=== PATIENT | female | born 1940 | race Caucasian/White ===

== ENCOUNTER 2019-05-22 16:09 | IRF | payer MEDICARE, SELFPAY ==
[2019-05-22 16:15] VITALS: BP 164/50; PULSE 96; RESP 18; TEMP 36.6; O2SAT 100; BMI 28.7
--- NOTE | 2019-05-22 16:37 | ADMGEN ---
This patient, Shital Chew, was admitted to [facility] Room 219-01. Patient/family oriented to hospital policies and general routines including ID bracelet, bed and alarms, visiting hours, pain management, procedures, bathroom and other care routines, personal items, smoking policy, room service/diet, and visiting hours. Valuables list has been completed. Information on how to activate the Rapid Response Team has been discussed. Patient/Family are encouraged to report perceived risks to care and to ask questions if they do not understand what they are told or what they should do.
[2019-05-22 17:27] LABS: Glucose Point of Care 111 (65-105)
[2019-05-22 21:14] LABS: Glucose Point of Care 156 (65-105)
[2019-05-22 21:33] VITALS: BP 146/40; PULSE 81; RESP 16; TEMP 36.6; O2SAT 96
[2019-05-22] MEDS: GABAPENTIN 300 MG CAPSULE 600 MG PO (22:02)
[2019-05-22] MEDS: ATORVASTATIN 40 MG TABLET PO (22:03)
[2019-05-23 05:00] LABS: Basophils Percent Auto 0.5 % (0.2-1.2); Eosinophils Absolute Auto 0.3 K/mm3 (0-0.3); Eosinophils Percent Auto 4.4 % (0-4.4); Hematocrit 26.8 % (37.0-47.0); Hemoglobin 8.6 g/dL (12.0-15.0); Immature Granulocyte Absolute 0.02 K/mm3 (0.00-0.031); Immature Granulocyte Percent A 0.3 % (0-0.5); Lymphocytes Absolute Auto 1.35 K/mm3 (0.9-3.2); Lymphocytes Percent Auto 21.3 % (18.3-44.2); Mean Corpuscular HGB Conc 32.1 g/dl (32-36); Mean Corpuscular Hemoglobin 30.2 pg (26-34); Mean Platelet Volume 11.5 fl (7.4-10.4); Monocytes Absolute Auto 0.7 K/mm3 (0.1-0.6); Monocytes Percent Auto 10.4 % (2.6-8.5); Neutrophils Percent Auto 63.1 % (45.5-73.1); Platelet Count Result 233 k/mm3 (150-375); Red Blood Count 2.85 M/mm3 (4.2-5.4); Red Cell Distribution Width 12.2 % (11.5-14.5); White Blood Count 6.3 K/mm3 (4.5-10.0)
[2019-05-23 05:24] LABS: Blood Urea Nitrogen 20 mg/dL (7-17); Carbon Dioxide 29 mmol/L (22-30); Chloride 106 mmol/L (98-107); Estimated Glomerular Filt Rate > 60; Glucose 111 mg/dL (65-105); Potassium 4.1 mmol/L (3.4-5.0); Sodium 138 mmol/L (137-145)
[2019-05-23 06:00] VITALS: BP 157/40; PULSE 70; RESP 20; TEMP 36.6; O2SAT 96
[2019-05-23] MEDS: LEVOTHYROXINE SODIUM 112 MCG, LEVOTHYROXINE SODIUM 25 MCG 137 MCG PO (06:09)
[2019-05-23 06:51] LABS: Glucose Point of Care 114 (65-105)
[2019-05-23] MEDS: ASCORBIC ACID 250 MG TABLET PO (08:04)
[2019-05-23] MEDS: ENOXAPARIN 40 MG/0.4 ML SYRINGE SUB-Q (08:04)
[2019-05-23] MEDS: FERROUS SULFATE 324 MG TABLET PO (08:04)
[2019-05-23] MEDS: AMLODIPINE BESYLATE 5 MG TABLET 10 MG PO (08:04)
[2019-05-23] MEDS: PANTOPRAZOLE 40 MG TABLET PO (08:05)
[2019-05-23] MEDS: GABAPENTIN 300 MG CAPSULE 600 MG PO ×3 (08:05→17:28)
[2019-05-23] MEDS: MULTIVITAMINS THERAPEUTIC TAB (*BKC) 1 TABLET PO (08:05)
[2019-05-23] MEDS: LIDOCAINE 5% PATCH 1 PATCH TOPICAL (08:05)
[2019-05-23 12:10] LABS: Glucose Point of Care 94 (65-105)
--- NOTE | 2019-05-23 12:34 | WPDREHABHP ---
H&P: HPI History of Present Illness Chief complaint: Right Hip Fx Narrative: Shital Chew is a 78 year old femaleHISTORY OF PRESENT ILLNESS: The patient's primary rehab impairment category is orthopedic/lower extremity fracture The etiologic diagnosis is right intertrochanteric fracture I saw this patient [id number] on May 23, 2019 at 11:00 a.m. The patient is a 78-year-old right-handed woman with a past medical history of hypertension, hyperlipidemia and diabetes mellitus type 2 who presented to [facility] on May 18, 2019 following a fall from standing. The patient was shopping then and other customer bumped into her knocking her to the ground. She immediately raise reported severe right hip pain. Imaging demonstrated a right intertrochanteric fracture. Orthopedic surgery was consulted and the patient underwent and intramedullary nailing on May 18, 2019 by . she is weight-bearing as tolerated to the right lower extremity. Postoperative complications have included acute kidney injury on suspected chronic kidney disease, acute pain, acute blood-loss anemia, and hypertension. Her current hemoglobin is 8.9 and stable her pain is controlled on oral pain medication and she is normotensive. She will be discharged to rehab on Lovenox and the anticoagulation plan the times discharge for 35 days Therapy was initiated at the acute care facility and the patient transferred to us from [facility] on May 22, 2019 on FALLS OR SURGERIES: The patient has had major surgeries in the 100 days prior to admission. They had falls in the past year. They had falls with injury in the past year. PAST MEDICAL HISTORY: diabetes mellitus type 2 with peripheral neuropathy, hypertension, hyperlipidemia PAST SURGICAL HISTORY: mastectomy SOCIAL HISTORY: never smoker no alcohol or drug abuse. FAMILY HISTORY: Mother with breast cancer PRIOR LEVEL OF FUNCTION: Eating was INDEPENDENT Oral Care was INDEPENDENT Toileting Hygiene was INDEPENDENT Shower/Bathing was INDEPENDENT Upper Body Dressing was INDEPENDENT Lower Body Dressing was INDEPENDENT Donning/[place] Footwear was INDEPENDENT Rolling Left and Right was INDEPENDENT Sit to Lying was INDEPENDENT Lying to Sitting was INDEPENDENT Sit to Stand was INDEPENDENT Bed to Chair Transfers was INDEPENDENT Toilet Transfers was INDEPENDENT Walking was INDEPENDENT 999 feet with NO DEVICE Wheelchair Mobility was NOT APPLICABLE PRIOR TO ADMISSION Stairs were for history is independent CURRENT LEVEL OF FUNCTION: Eating was [SET UP ONLY] independent Oral Care was supervision Toileting Hygiene was partial real estate executive assistant Shower/Bathing was substantial assistance Upper Body Dressing was partial assistance Lower Body Dressing was substantial cyst Donning/[place] Footwear was substantial assistance Rolling Left and Right was partial system Sit to Lying was partial assistance Lying to Sitting was partial assistance Sit to Stand was partial cyst Bed to Chair Transfers were partial cyst Toilet Transfers were partial assistance Walking was partial assistance with rolling walker 10 feet Wheelchair Mobility was not test Stairs were not tested GOALS: Our therapists will evaluate the patient and establish the goals. However, upon pre-admission screening, the expected goals were to be INDEPENDENT with self-care, INDEPENDENT with transfers, and INDEPENDENT with functional mobility so that the patient can return home. ESTIMATED LENGTH OF STAY: 10-14 days POTENTIAL BARRIERS TO DISCHARGE: Family needs training. ACTIVE CO-MORBIDITIES PRESENT ON ADMISSION: Active co-morbidities include what I have mentioned in the initial My history physical examination. The above co-morbidities impact the patient's function and/or functional outcome by the fact that the patient needs to be monitored because of a
[2019-05-23 13:42] VITALS: BMI 28.7
[2019-05-23 14:00] VITALS: BP 146/47; PULSE 90; RESP 16; TEMP 36.6; O2SAT 99
--- NOTE | 2019-05-23 14:22 | PCCCNOTE ---
On 05/23/19, the student, [ Bobby Lan ], provided care and completed [facility] documentation on this patient. I have reviewed the student's documentation and agree with the findings.
[2019-05-23 17:11] LABS: Glucose Point of Care 112 (65-105)
[2019-05-23] MEDS: ATORVASTATIN 40 MG TABLET PO (20:24)
[2019-05-23 21:38] VITALS: BP 140/53; PULSE 82; RESP 20; TEMP 36.6; O2SAT 98
[2019-05-24] MEDS: LEVOTHYROXINE SODIUM 112 MCG, LEVOTHYROXINE SODIUM 25 MCG 137 MCG PO (05:44)
[2019-05-24 06:00] VITALS: BP 149/56; PULSE 77; RESP 18; TEMP 36.6; O2SAT 97
[2019-05-24 06:11] LABS: Glucose Point of Care 99 (65-105)
[2019-05-24] MEDS: ENOXAPARIN 40 MG/0.4 ML SYRINGE SUB-Q (08:59)
[2019-05-24] MEDS: LIDOCAINE 5% PATCH 1 PATCH TOPICAL (08:59)
[2019-05-24] MEDS: FERROUS SULFATE 324 MG TABLET PO (09:00)
[2019-05-24] MEDS: AMLODIPINE BESYLATE 5 MG TABLET 10 MG PO (09:00)
[2019-05-24] MEDS: ASCORBIC ACID 250 MG TABLET PO (09:00)
[2019-05-24] MEDS: MULTIVITAMINS THERAPEUTIC TAB (*BKC) 1 TABLET PO (09:00)
[2019-05-24] MEDS: PANTOPRAZOLE 40 MG TABLET PO (09:00)
[2019-05-24] MEDS: GABAPENTIN 300 MG CAPSULE 600 MG PO ×3 (09:00→16:57)
[2019-05-24 12:07] LABS: Glucose Point of Care 92 (65-105)
--- NOTE | 2019-05-24 12:50 | WPDNEURORHBP ---
Subjective Date/time seen: 05/24/19 12:50 Interval history: patient is complaining of some soreness and itching around the area of incision off if surgery this examiner looked at and looks like little abrasion but not infection and will put some kind of cream or lotion after checking with the wound care nurse otherwise she denies any headache chest pain shortness of breath her pain control is fair so we will manage it better she is improving overall Review of Systems Review of Systems: All systems reviewed & are unremarkable except as noted in HPI and below Functional Status Ambulation Ability Ability to Ambulate 10 Feet: Contact Guard Ambulation Assistive Devices: Walker, Wheeled Transfers Ability Ability to Transfer In/Out of Chair: Minimum Assistance X 1 Exam Const: General: comfortable and no acute distress HENMT: Other: normal exam Eyes: General: appearance normal, both eyes and all related structures Neck: Neck: supple and no JVD Resp: Effort & Inspection: normal respiratory effort Auscultation: clear to auscultation bilaterally Cardio: Rate: regular rate Rhythm: regular rhythm GI: GI Palp: Yes Soft to palpation Percussion: Yes normal to percussion Auscultation: normal bowel sounds Skin: General skin exam: normal color and no rashes or lesions noted Neuro: Other: improving strength particularly the lower extremities and also the upper extremities intact the neuro examination otherwise no lateralizing focal motor deficit Extrem: General: normal to inspection Objective Data Vital Signs Vital Signs: Vital Signs - 24 hr 05/23/19 14:00 05/23/19 21:38 05/24/19 06:00 Temperature 36.6 C 36.6 C 36.6 C Pulse Rate 90 82 77 Respiratory Rate 16 20 18 Blood Pressure 146/47 H 140/53 L 149/56 H Pulse Oximetry 99 98 97 Intake/Output Intake/Output: Intake & Output 05/21/19 05/22/19 05/23/19 05/24/19 23:59 23:59 23:59 23:59 Intake Total 720 360 Balance 720 360 Meds/Results Medications: Active Medications Generic Name Dose Route Start Last Admin Trade Name Freq PRN Reason Stop Dose Admin Amlodipine Besylate 10 mg 05/23/19 09:00 05/24/19 09:00 Norvasc PO 10 mg DAILY HEATHER Administration Ascorbic Acid 250 mg 05/23/19 09:00 05/24/19 09:00 Vitamin C PO 250 mg DAILY HEATHER Administration Atorvastatin Calcium 40 mg 05/22/19 21:00 05/23/19 20:24 Lipitor PO 40 mg HS HEATHER Administration Enoxaparin Sodium 40 mg 05/23/19 09:00 05/24/19 08:59 Lovenox SUB-Q 06/26/19 09:01 40 mg DAILY HEATHER Administration Ferrous Sulfate 324 mg 05/23/19 09:00 05/24/19 09:00 Ferrous Sulfate PO 324 mg DAILY HEATHER Administration Gabapentin 600 mg 05/22/19 21:00 05/24/19 12:11 Neurontin PO 600 mg TID HEATHER Administration Levothyroxine Sodium 112 mcg/ 137 mcg 05/23/19 06:30 05/24/19 05:44 Levothyroxine Sodium 25 mcg PO 137 mcg DAILY@0630 HEATHER Administration Lidocaine 1 patch 05/23/19 09:00 05/24/19 08:59 Lidoderm TOPICAL 05/25/19 09:01 1 patch DAILY HEATHER Administration Multivitamins Therapeutic 1 tablet 05/23/19 09:00 05/24/19 09:00 Multivitamins Therapeutic(*Bkc PO 1 tablet DAILY HEATHER Administration Oxybutynin Chloride 5 mg 05/23/19 09:00 05/24/19 09:00 Ditropan Xl PO 5 mg DAILY HEATHER Administration Oxycodone HCl 5 mg 05/22/19 20:51 05/23/19 12:26 Roxicodone Ir Tablet PO 5 mg Q6H PRN Administration Pain (Scale Score 7-10) Pantoprazole Sodium 40 mg 05/23/19 09:00 05/24/19 09:00 Protonix PO 40 mg QAM HEATHER Administration Labs Labs: Laboratory Results - last 24 hr 05/23/19 05/24/19 05/24/19 17:04 05:47 12:05 POC Capillary Glucose 112 H 99 92 Progress Note: A&P Assessment and Plan (1) Hyperlipidemia: Code(s): E78.5 - Hyperlipidemia, unspecified Status: Acute (2) Hypertension: Code(s): I10 - Essential (primary) hypertension Status: Acute (3) Isabel
[2019-05-24 14:00] VITALS: BP 158/58; PULSE 90; RESP 18; TEMP 36.4; O2SAT 100
--- NOTE | 2019-05-24 14:41 | RPD ---
INDIVIDUALIZED PLAN OF CARE FOR Shital Chew Brief Synthesis of Pre-Admission Screen, Post-Admission Evaluation and Therapy Evaluations: The patient presents to rehab with right intertrochanteric fracture. Comorbidities include status post intramedullary nailing right hip, hypertension, hyperlipidemia, acute pain, acute kidney injury, diabetes mellitus. The patient requires physician services for medical oversight, management of postop complications in setting of present comorbidities, and pain management. The patient requires nursing services for DVT prophylactics, infection protection, medication management and education, pressure relief, and wound care. Prior to admission, the patient was completely independent in all regards, with no device. Deficits include:ADLs, Balance, Endurance, Mobility, Pain Management, ROM, Safety, Strength, Transfers Career Consultant/Case Management for: Discharge Planning and Patient/Family Counseling Physical Therapy: 5 days per week for 90 minutes. Treatments may include: Therapeutic Exercise, Gait Training, Neuromuscular Re-education, Transfer Training, Community Reintegration, Bed Mobility, Patient/Family Education, Wheelchair Mobility Group Therapy/Concurrent Therapy Rationales: -Improve attention span during functional activities in a distracted environment. -Enhance problem solving and/or adequate judgment skills during functional activities in a distracted environment. -Promote increased safety awareness in a distracted environment to reduce fall risk with functional tasks, transfers, and ambulation to allow a more safe, self-sufficient return to the home environment. -Improve dynamic balance skills to promote safety and independence with functional activities in a distracted environment for maximum gain. Occupational Therapy: 5 days per week for 90 minutes. Treatments may include: Therapeutic Exercise, Therapeutic Activity, Cognitive Training, Self-Care Transfer Training, Community Reintegration, Home Management, Patient/Family Education, Wheelchair Mobility Training, Energy Conservation Training Group Therapy/Concurrent Therapy Rationales: -Allow therapist to observe and teach generalization and carry-over of skills learned in individual therapy. -Enhance problem solving and sequencing skills during therapeutic activities in a distracted environment. -Promote increased safety awareness in a realistic setting to reduce fall risk with functional tasks due to visual and verbal distractions. -Increase functional level with ADLs, ADL transfers and use of adaptive equipment through therapeutic activities with others while promoting safety to allow a more safe, self-sufficient return home. Medical Prognosis: Good Anticipated Length of Stay: 10 days Rehab Goals: Oral Hygiene Goal: 06-Independent Toileting Hygiene Goal: 06-Independent Shower/Bathe Self Goal: 06-Independent Upper Body Dressing Goal: 06-Independent Lower Body Dressing Goal: 06-Independent Putting On/Taking Off Footwear Goal: 06-Independent Rolling Left and Right Goal: 06-Independent Sit to Lying Goal: 06-Independent Lying to Sitting on Side of Bed Goal: 06-Independent Sit to Stand Goal: 06-Independent Chair/[id number] Transfer Goal: 06-Independent Toilet Transfer Goal: 06-Independent Car Transfer Goal: 06-Independent Walk 10' Goal: 06-Independent Walk 50' with Two Turns Goal: 06-Independent Walk 150' Goal: 06-Independent Walk 10' on Uneven Surface Goal: 05-Setup or Clean Up Assistance 1 Step (Curb) Goal: 05-Setup or Clean Up Assistance 4 Steps Goal: 05-Setup or Clean Up Assistance 12 Steps Goal Score: 01-Dependent Picking Up Object Goal: 06-Independent Wheel 50' with Two Turns Score: 06-Independent Wheel 150' Goal: 06-Independent Anticipated discharge destination: Home
[2019-05-24] MEDS: ATORVASTATIN 40 MG TABLET PO (19:59)
[2019-05-24 22:00] VITALS: BP 144/46; PULSE 67; RESP 18; TEMP 36.5; O2SAT 98
[2019-05-25] MEDS: LEVOTHYROXINE SODIUM 112 MCG, LEVOTHYROXINE SODIUM 25 MCG 137 MCG PO (05:39)
[2019-05-25 05:54] VITALS: BP 136/52; PULSE 62; RESP 18; TEMP 36.3; O2SAT 99
[2019-05-25 06:14] LABS: Glucose Point of Care 92 (65-105)
[2019-05-25] MEDS: LIDOCAINE 5% PATCH 1 PATCH TOPICAL (09:26)
[2019-05-25] MEDS: ENOXAPARIN 40 MG/0.4 ML SYRINGE SUB-Q (09:26)
[2019-05-25] MEDS: MULTIVITAMINS THERAPEUTIC TAB (*BKC) 1 TABLET PO (09:27)
[2019-05-25] MEDS: FERROUS SULFATE 324 MG TABLET PO (09:27)
[2019-05-25] MEDS: PANTOPRAZOLE 40 MG TABLET PO (09:27)
[2019-05-25] MEDS: ASCORBIC ACID 250 MG TABLET PO (09:27)
[2019-05-25] MEDS: GABAPENTIN 300 MG CAPSULE 600 MG PO ×3 (09:27→17:07)
[2019-05-25] MEDS: AMLODIPINE BESYLATE 5 MG TABLET 10 MG PO (09:27)
--- NOTE | 2019-05-25 11:45 | WPDNEURORHBP ---
Subjective Date/time seen: 05/25/19 11:45 Interval history: patient complains of modest amount of the pain at the surgical site of the right hip area, the so redness around the dressing is much less and the nurse has been in touch with the wound care nurse and she is going to put skin prep to keep her more comfortable overall patient is doing well without any headaches chest pain shortness of breath Review of Systems Review of Systems: All systems reviewed & are unremarkable except as noted in HPI and below Functional Status Ambulation Ability Ability to Ambulate 10 Feet: Contact Guard Ability to Ambulate 50 Feet With 2 Turns: Contact Guard Ambulation Assistive Devices: Walker, Wheeled Transfers Ability Ability to Transfer In/Out of Chair: Minimum Assistance X 1 Exam Const: General: comfortable and no acute distress HENMT: General nose exam: Normal nares present Mouth: Yes moist mucous membranes Eyes: General: appearance normal, both eyes and all related structures Neck: Neck: supple and no JVD Resp: Effort & Inspection: normal respiratory effort Auscultation: clear to auscultation bilaterally Cardio: Rate: regular rate Rhythm: regular rhythm GI: GI Palp: Yes Soft to palpation Auscultation: normal bowel sounds Skin: General skin exam: normal color and no rashes or lesions noted Other: little abraded area around the site of the surgery for the right hip fracture which is going to be skin prepped once the nurse change the dressing today Neuro: Other: patient is doing remarkably well without any lateralizing focal motor deficit she is following the weight-bearing status quite well gait is improving strength is improving endurance is improved Extrem: General: normal to inspection Objective Data Vital Signs Vital Signs: Vital Signs - 24 hr 05/24/19 14:00 05/24/19 22:00 05/25/19 05:54 Temperature 36.4 C 36.5 C 36.3 C L Pulse Rate 90 67 62 Respiratory Rate 18 18 18 Blood Pressure 158/58 H 144/46 H 136/52 L Pulse Oximetry 100 98 99 Intake/Output Intake/Output: Intake & Output 05/22/19 05/23/19 05/24/19 05/25/19 23:59 23:59 23:59 23:59 Intake Total 720 840 240 Balance 720 840 240 Meds/Results Medications: Active Medications Generic Name Dose Route Start Last Admin Trade Name Freq PRN Reason Stop Dose Admin Amlodipine Besylate 10 mg 05/23/19 09:00 05/25/19 09:27 Norvasc PO 10 mg DAILY HEATHER Administration Ascorbic Acid 250 mg 05/23/19 09:00 05/25/19 09:27 Vitamin C PO 250 mg DAILY HEATHER Administration Atorvastatin Calcium 40 mg 05/22/19 21:00 05/24/19 19:59 Lipitor PO 40 mg HS HEATHER Administration Enoxaparin Sodium 40 mg 05/23/19 09:00 05/25/19 09:26 Lovenox SUB-Q 06/26/19 09:01 40 mg DAILY HEATHER Administration Ferrous Sulfate 324 mg 05/23/19 09:00 05/25/19 09:27 Ferrous Sulfate PO 324 mg DAILY HEATHER Administration Gabapentin 600 mg 05/22/19 21:00 05/25/19 09:27 Neurontin PO 600 mg TID [facility] Administration Levothyroxine Sodium 112 mcg/ 137 mcg 05/23/19 06:30 05/25/19 05:39 Levothyroxine Sodium 25 mcg PO 137 mcg DAILY@0630 HEATHER Administration Multivitamins Therapeutic 1 tablet 05/23/19 09:00 05/25/19 09:27 Multivitamins Therapeutic(*Bkc PO 1 tablet DAILY HEATHER Administration Oxybutynin Chloride 5 mg 05/23/19 09:00 05/25/19 09:26 Ditropan Xl PO 5 mg DAILY HEATHER Administration Oxycodone HCl 5 mg 05/22/19 20:51 05/25/19 05:42 Roxicodone Ir Tablet PO 5 mg Q6H PRN Administration Pain (Scale Score 7-10) Pantoprazole Sodium 40 mg 05/23/19 09:00 05/25/19 09:27 Protonix PO 40 mg QAM HEATHER Administration Labs Labs: Laboratory Results - last 24 hr 05/24/19 05/25/19 12:05 05:38 POC Capillary Glucose 92 92 Progress Note: A&P Assessment and Plan (1) Hyperlipidemia: Code(s): E78.5 - Hyperlipidemia, unspecified Status: Acute (2) Hypertension:
--- NOTE | 2019-05-25 12:42 | PCDIET ---
Nutrition Follow-Up Complete: Nutrition Diagnosis: No nutrition diagnosis at this time. Nutrition Goals: Intakes >75%, stable weight. Goals met. Intakes average 80% of meals since admission on diabetic, carbohydrate controlled diet which is appropriate. Patient reports appetite only fair but is eating as well as possible. Last recorded weight is 64.5 kg. Recommend obtaining new weight. Bowel Motility: Last documented bowel movement on 05/22/19. Labs Reviewed: Glu (92) Meds Noted: Vitamin C, Ferrous Sulfate, Multivitamin, Protonix Additional Notes: Right hip surgical incision site; no pressure sores documented. Nutrition Monitoring and Evaluation: Follow up in 7 days.
--- NOTE | 2019-05-25 13:05 | PCPTNOTE ---
Shital Chew was evaluated for a wheeled walker on 05/25/2019 by this physical therapist patient support assistant The wheeled walker will resolve patient's mobility limitations and will be used for ADL's within the home. The patient can safely use the wheeled walker. ?The wheeled walker will resolve the patient?s mobility deficits, including decrease strength of right lower extremity, balance and endurance.
[2019-05-25 14:00] VITALS: BP 151/51; PULSE 86; RESP 20; TEMP 36.4; O2SAT 100
[2019-05-25] MEDS: ATORVASTATIN 40 MG TABLET PO (19:58)
[2019-05-25 22:00] VITALS: BP 168/56; PULSE 62; RESP 18; TEMP 36.3; O2SAT 92
[2019-05-26 05:52] VITALS: BP 171/46; PULSE 80; RESP 18; TEMP 36.7; O2SAT 98
[2019-05-26] MEDS: LEVOTHYROXINE SODIUM 112 MCG, LEVOTHYROXINE SODIUM 25 MCG 137 MCG PO (06:21)
[2019-05-26 06:32] LABS: Glucose Point of Care 82 (65-105)
[2019-05-26] MEDS: AMLODIPINE BESYLATE 5 MG TABLET 10 MG PO (09:39)
[2019-05-26] MEDS: MULTIVITAMINS THERAPEUTIC TAB (*BKC) 1 TABLET PO (09:40)
[2019-05-26] MEDS: ENOXAPARIN 40 MG/0.4 ML SYRINGE SUB-Q (09:40)
[2019-05-26] MEDS: ASCORBIC ACID 250 MG TABLET PO (09:40)
[2019-05-26] MEDS: PANTOPRAZOLE 40 MG TABLET PO (09:40)
[2019-05-26] MEDS: GABAPENTIN 300 MG CAPSULE 600 MG PO ×3 (09:40→17:28)
[2019-05-26] MEDS: FERROUS SULFATE 324 MG TABLET PO (09:40)
--- NOTE | 2019-05-26 11:52 | WPDNEURORHBP ---
Subjective Date/time seen: 05/26/19 11:52 Interval history: patient is doing well and could have a dressing change today apart from the soreness at the hip fracture site she does not have any specific complaints she is little tired after the physical therapy but no chest pain no shortness of breath no headache nausea vomiting fevers chills or sore throat Review of Systems Review of Systems: All systems reviewed & are unremarkable except as noted in HPI and below Functional Status Ambulation Ability Ability to Ambulate 10 Feet: Contact Guard Ability to Ambulate 50 Feet With 2 Turns: Contact Guard Ambulation Assistive Devices: Walker, Wheeled Transfers Ability Ability to Transfer In/Out of Chair: Standby Assistance Exam Const: General: comfortable and no acute distress HENMT: General nose exam: Normal nares present Mouth: Yes moist mucous membranes Eyes: General: appearance normal, both eyes and all related structures Neck: Neck: supple and no JVD Resp: Effort & Inspection: normal respiratory effort Auscultation: clear to auscultation bilaterally Cardio: Rate: regular rate Rhythm: regular rhythm GI: GI Palp: Yes Soft to palpation Auscultation: normal bowel sounds Skin: General skin exam: normal color and no rashes or lesions noted Neuro: Other: improving strength and endurance engage in therapy motivated no lateralizing focal motor deficit the weakness is related to her hip surgery rather than neurological in nature Extrem: General: normal to inspection Objective Data Vital Signs Vital Signs: Vital Signs - 24 hr 05/25/19 14:00 05/25/19 22:00 05/26/19 05:52 Temperature 36.4 C 36.3 C L 36.7 C Pulse Rate 86 62 80 Respiratory Rate 20 18 18 Blood Pressure 151/51 H 168/56 H 171/46 H Pulse Oximetry 100 92 98 Intake/Output Intake/Output: Intake & Output 05/23/19 05/24/19 05/25/19 05/26/19 23:59 23:59 23:59 23:59 Intake Total 720 840 600 240 Balance 720 840 600 240 Meds/Results Medications: Active Medications Generic Name Dose Route Start Last Admin Trade Name Freq PRN Reason Stop Dose Admin Amlodipine Besylate 10 mg 05/23/19 09:00 05/26/19 09:39 Norvasc PO 10 mg DAILY HEATHER Administration Ascorbic Acid 250 mg 05/23/19 09:00 05/26/19 09:40 Vitamin C PO 250 mg DAILY HEATHER Administration Atorvastatin Calcium 40 mg 05/22/19 21:00 05/25/19 19:58 Lipitor PO 40 mg HS HEATHER Administration Enoxaparin Sodium 40 mg 05/23/19 09:00 05/26/19 09:40 Lovenox SUB-Q 06/26/19 09:01 40 mg DAILY HEATHER Administration Ferrous Sulfate 324 mg 05/23/19 09:00 05/26/19 09:40 Ferrous Sulfate PO 324 mg DAILY HEATHER Administration Gabapentin 600 mg 05/22/19 21:00 05/26/19 09:40 Neurontin PO 600 mg TID HEATHER Administration Levothyroxine Sodium 112 mcg/ 137 mcg 05/23/19 06:30 05/26/19 06:21 Levothyroxine Sodium 25 mcg PO 137 mcg DAILY@0630 HEATHER Administration Multivitamins Therapeutic 1 tablet 05/23/19 09:00 05/26/19 09:40 Multivitamins Therapeutic(*Bkc PO 1 tablet DAILY HEATHER Administration Oxybutynin Chloride 5 mg 05/23/19 09:00 05/26/19 09:40 Ditropan Xl PO 5 mg DAILY HEATHER Administration Oxycodone HCl 5 mg 05/22/19 20:51 05/26/19 09:39 Roxicodone Ir Tablet PO 5 mg Q6H PRN Administration Pain (Scale Score 7-10) Pantoprazole Sodium 40 mg 05/23/19 09:00 05/26/19 09:40 Protonix PO 40 mg QAM HEATHER Administration Labs Labs: Laboratory Results - last 24 hr 05/26/19 06:22 POC Capillary Glucose 82 Progress Note: A&P Assessment and Plan (1) Hyperlipidemia: Code(s): E78.5 - Hyperlipidemia, unspecified Status: Acute (2) Hypertension: Code(s): I10 - Essential (primary) hypertension Status: Acute (3) Diabetes mellitus type 2 in nonobese: Code(s): E11.9 - Type 2 diabetes mellitus without complications Status: Acute (4) Fracture, intertrochanteric, rig
--- NOTE | 2019-05-26 11:55 | WPDNEURORHBP ---
Subjective Date/time seen: 05/26/19 11:55 Interval history: patient is little emotional today and perturbed because of having had stroke however she does have movement in the left shoulder and also left foot she is engage in therapy motivated but of course depression is a part and parcel of having had stroke with the patient is limited in her activities of daily living Patient denies any chest pain shortness of breath headache nausea vomiting Review of Systems Review of Systems: All systems reviewed & are unremarkable except as noted in HPI and below Functional Status Ambulation Ability Ability to Ambulate 10 Feet: Contact Guard Ability to Ambulate 50 Feet With 2 Turns: Contact Guard Ambulation Assistive Devices: Walker, Wheeled Transfers Ability Ability to Transfer In/Out of Chair: Standby Assistance Exam Const: General: comfortable and no acute distress HENMT: General nose exam: Normal nares present Mouth: Yes moist mucous membranes Eyes: General: appearance normal, both eyes and all related structures Neck: Neck: supple and no JVD Resp: Effort & Inspection: normal respiratory effort Auscultation: clear to auscultation bilaterally Cardio: Rate: regular rate Rhythm: regular rhythm GI: GI Palp: Yes Soft to palpation Auscultation: normal bowel sounds Skin: General skin exam: normal color and no rashes or lesions noted Neuro: Other: mental status examination normal cranial examination shows flattening of the left nasal labial fold the left-sided hemiparesis which is moderately severe is improving rather slowly and she is able to take several steps with the help and walker Objective Data Vital Signs Vital Signs: Vital Signs - 24 hr 05/25/19 14:00 05/25/19 22:00 05/26/19 05:52 Temperature 36.4 C 36.3 C L 36.7 C Pulse Rate 86 62 80 Respiratory Rate 20 18 18 Blood Pressure 151/51 H 168/56 H 171/46 H Pulse Oximetry 100 92 98 Intake/Output Intake/Output: Intake & Output 05/23/19 05/24/19 05/25/19 05/26/19 23:59 23:59 23:59 23:59 Intake Total 720 840 600 240 Balance 720 840 600 240 Meds/Results Medications: Active Medications Generic Name Dose Route Start Last Admin Trade Name Freq PRN Reason Stop Dose Admin Amlodipine Besylate 10 mg 05/23/19 09:00 05/26/19 09:39 Norvasc PO 10 mg DAILY HEATHER Administration Ascorbic Acid 250 mg 05/23/19 09:00 05/26/19 09:40 Vitamin C PO 250 mg DAILY HEATHER Administration Atorvastatin Calcium 40 mg 05/22/19 21:00 05/25/19 19:58 Lipitor PO 40 mg HS HEATHER Administration Enoxaparin Sodium 40 mg 05/23/19 09:00 05/26/19 09:40 Lovenox SUB-Q 06/26/19 09:01 40 mg DAILY HEATHER Administration Ferrous Sulfate 324 mg 05/23/19 09:00 05/26/19 09:40 Ferrous Sulfate PO 324 mg DAILY HEATHER Administration Gabapentin 600 mg 05/22/19 21:00 05/26/19 09:40 Neurontin PO 600 mg TID HEATHER Administration Levothyroxine Sodium 112 mcg/ 137 mcg 05/23/19 06:30 05/26/19 06:21 Levothyroxine Sodium 25 mcg PO 137 mcg DAILY@0630 HEATHER Administration Multivitamins Therapeutic 1 tablet 05/23/19 09:00 05/26/19 09:40 Multivitamins Therapeutic(*Bkc PO 1 tablet DAILY HEATHER Administration Oxybutynin Chloride 5 mg 05/23/19 09:00 05/26/19 09:40 Ditropan Xl PO 5 mg DAILY HEATHER Administration Oxycodone HCl 5 mg 05/22/19 20:51 05/26/19 09:39 Roxicodone Ir Tablet PO 5 mg Q6H PRN Administration Pain (Scale Score 7-10) Pantoprazole Sodium 40 mg 05/23/19 09:00 05/26/19 09:40 Protonix PO 40 mg QAM HEATHER Administration Labs Labs: Laboratory Results - last 24 hr 05/26/19 06:22 POC Capillary Glucose 82
[2019-05-26 14:00] VITALS: BP 134/67; PULSE 65; RESP 16; TEMP 36.6; O2SAT 98
[2019-05-26] MEDS: ATORVASTATIN 40 MG TABLET PO (20:11)
[2019-05-26 20:14] VITALS: BP 170/60; PULSE 70; RESP 18; TEMP 36.8; O2SAT 98
[2019-05-27 06:00] VITALS: BP 147/83; PULSE 62; RESP 16; TEMP 36.6; O2SAT 94
[2019-05-27] MEDS: LEVOTHYROXINE SODIUM 112 MCG, LEVOTHYROXINE SODIUM 25 MCG 137 MCG PO (06:07)
[2019-05-27 06:53] LABS: Glucose Point of Care 106 (65-105)
[2019-05-27] MEDS: GABAPENTIN 300 MG CAPSULE 600 MG PO ×3 (08:40→17:24)
[2019-05-27] MEDS: ENOXAPARIN 40 MG/0.4 ML SYRINGE SUB-Q (08:40)
[2019-05-27] MEDS: PANTOPRAZOLE 40 MG TABLET PO (08:40)
[2019-05-27] MEDS: MULTIVITAMINS THERAPEUTIC TAB (*BKC) 1 TABLET PO (08:41)
[2019-05-27] MEDS: FERROUS SULFATE 324 MG TABLET PO (08:41)
[2019-05-27] MEDS: AMLODIPINE BESYLATE 5 MG TABLET 10 MG PO (08:41)
[2019-05-27] MEDS: ASCORBIC ACID 250 MG TABLET PO (08:41)
[2019-05-27 14:00] VITALS: BP 144/44; PULSE 70; RESP 20; TEMP 36.2; O2SAT 99
[2019-05-27] MEDS: ATORVASTATIN 40 MG TABLET PO (19:52)
[2019-05-27 21:27] VITALS: BP 149/45; PULSE 76; RESP 20; TEMP 36.6; O2SAT 96
[2019-05-28] MEDS: LEVOTHYROXINE SODIUM 112 MCG, LEVOTHYROXINE SODIUM 25 MCG 137 MCG PO (05:54)
[2019-05-28 06:00] VITALS: BP 151/41; PULSE 68; RESP 16; TEMP 36.6; O2SAT 98
[2019-05-28 06:33] LABS: Glucose Point of Care 96 (65-105)
[2019-05-28] MEDS: ENOXAPARIN 40 MG/0.4 ML SYRINGE SUB-Q (09:01)
[2019-05-28] MEDS: PANTOPRAZOLE 40 MG TABLET PO (09:02)
[2019-05-28] MEDS: AMLODIPINE BESYLATE 5 MG TABLET 10 MG PO (09:02)
[2019-05-28] MEDS: GABAPENTIN 300 MG CAPSULE 600 MG PO ×3 (09:02→16:48)
[2019-05-28] MEDS: FERROUS SULFATE 324 MG TABLET PO (09:03)
[2019-05-28] MEDS: ASCORBIC ACID 250 MG TABLET PO (09:03)
[2019-05-28] MEDS: MULTIVITAMINS THERAPEUTIC TAB (*BKC) 1 TABLET PO (09:03)
--- NOTE | 2019-05-28 13:27 | WPDNEURORHBP ---
Subjective Date/time seen: 05/28/19 13:27 Interval history: this 78-year-old woman is rehabilitating here at our rehab after having had a right hip fracture followed by surgery Her medication were reviewed and concurred Patient pain and discomfort on the right side is much better than the previous status She denies any chest pain shortness of breath headache nausea and vomiting She is getting lab work done weekly Review of Systems Constitutional: Constitutional: Reports no additional constitutional complaints Eyes: Eyes: Reports no additional eye complaints ENT: Reports system reviewed and no additional complaints, except as documented Cardiovascular: Cardiovascular: Reports no additional cardiovascular complaints Respiratory: Respiratory: Reports no additional respiratory complaints Gastrointestinal: Gastrointestinal: Reports no additional gastrointestinal complaints Genitourinary: Genitourinary: Reports no additional female genitourinary complaints Musculoskeletal: Musculoskeletal: Reports no additional musculoskeletal complaints Neurologic: Comments: patient's does not have any specific neurological complaints Psychiatric: Psychiatric: Reports no additional psychiatric complaints Functional Status Ambulation Ability Ability to Ambulate 10 Feet: Standby Assistance Ability to Ambulate 50 Feet With 2 Turns: Standby Assistance Ability to Ambulate 150 Feet: Standby Assistance Ambulation Assistive Devices: Walker, Wheeled Transfers Ability Ability to Transfer In/Out of Chair: Standby Assistance Exam Const: General: comfortable and no acute distress HENMT: General nose exam: Normal nares present Mouth: Yes moist mucous membranes Eyes: General: appearance normal, both eyes and all related structures Neck: Neck: supple and no JVD Resp: Effort & Inspection: normal respiratory effort Auscultation: clear to auscultation bilaterally Cardio: Rate: regular rate Rhythm: regular rhythm GI: GI Palp: Yes Soft to palpation Auscultation: normal bowel sounds Skin: General skin exam: normal color and no rashes or lesions noted Neuro: Other: patient's mental status examination is normal, cranial nerve examination is normal her deficit is due to the fractured hip and she needs assistance in most of the activities of daily living which involves the lower extremities in particular Extrem: Other: the incision at the surgical site is clean and healthy Psych: Mental Status: mental status grossly normal Objective Data Vital Signs Vital Signs: Vital Signs - 24 hr 05/27/19 14:00 05/27/19 21:27 05/28/19 06:00 Temperature 36.2 C L 36.6 C 36.6 C Pulse Rate 70 76 68 Respiratory Rate 20 20 16 Blood Pressure 144/44 H 149/45 H 151/41 H Pulse Oximetry 99 96 98 Intake/Output Intake/Output: Intake & Output 05/25/19 05/26/19 05/27/19 05/28/19 23:59 23:59 23:59 23:59 Intake Total 600 680 720 240 Balance 600 680 720 240 Meds/Results Medications: Active Medications Generic Name Dose Route Start Last Admin Trade Name Braxtonq PRN Reason Stop Dose Admin Amlodipine Besylate 10 mg 05/23/19 09:00 05/28/19 09:02 Norvasc PO 10 mg DAILY HEATHER Administration Ascorbic Acid 250 mg 05/23/19 09:00 05/28/19 09:03 Vitamin C PO 250 mg DAILY HEATHER Administration Atorvastatin Calcium 40 mg 05/22/19 21:00 05/27/19 19:52 Lipitor PO 40 mg HS HEATHER Administration Enoxaparin Sodium 40 mg 05/23/19 09:00 05/28/19 09:01 Lovenox SUB-Q 06/26/19 09:01 40 mg DAILY HEATHER Administration Ferrous Sulfate 324 mg 05/23/19 09:00 05/28/19 09:03 Ferrous Sulfate PO 324 mg DAILY HEATHER Administration Gabapentin 600 mg 05/22/19 21:00 05/28/19 12:17 Neurontin PO 600 mg TID HEATHER Administration Levothyroxine Sodium 112 mcg/ 137 mcg 05/23/19 06:30 05/28/19 05:54 Levothyroxine Sodium 25 mcg PO 137 mcg DAILY@0630 HEATHER Administration Multivitamins Therapeutic 1 tablet 05/23/19 09:00 0
[2019-05-28 14:00] VITALS: BP 145/58; PULSE 62; RESP 20; TEMP 36.7; O2SAT 97
[2019-05-28] MEDS: ATORVASTATIN 40 MG TABLET PO (20:00)
[2019-05-28 22:00] VITALS: BP 162/58; PULSE 74; RESP 18; O2SAT 92
[2019-05-29] MEDS: LEVOTHYROXINE SODIUM 112 MCG, LEVOTHYROXINE SODIUM 25 MCG 137 MCG PO (05:35)
[2019-05-29 05:48] VITALS: BP 148/50; PULSE 60; RESP 16; TEMP 36.5; O2SAT 97
[2019-05-29 06:03] LABS: Glucose Point of Care 99 (65-105)
[2019-05-29] MEDS: ENOXAPARIN 40 MG/0.4 ML SYRINGE SUB-Q (07:50)
[2019-05-29] MEDS: PANTOPRAZOLE 40 MG TABLET PO (07:51)
[2019-05-29] MEDS: MULTIVITAMINS THERAPEUTIC TAB (*BKC) 1 TABLET PO (07:51)
[2019-05-29] MEDS: GABAPENTIN 300 MG CAPSULE 600 MG PO ×3 (07:51→16:41)
[2019-05-29] MEDS: ASCORBIC ACID 250 MG TABLET PO (07:52)
[2019-05-29] MEDS: AMLODIPINE BESYLATE 5 MG TABLET 10 MG PO (07:52)
[2019-05-29] MEDS: FERROUS SULFATE 324 MG TABLET PO (07:52)
[2019-05-29 14:31] VITALS: BP 144/40; PULSE 70; RESP 20; TEMP 36.7; O2SAT 99
[2019-05-29] MEDS: ATORVASTATIN 40 MG TABLET PO (20:55)
[2019-05-29 21:36] VITALS: BP 165/36; PULSE 59; RESP 20; TEMP 36.6; O2SAT 98
[2019-05-30 04:48] LABS: Basophils Percent Auto 0.5 % (0.2-1.2); Eosinophils Absolute Auto 0.2 K/mm3 (0-0.3); Eosinophils Percent Auto 3.8 % (0-4.4); Hematocrit 28.6 % (37.0-47.0); Hemoglobin 9.1 g/dL (12.0-15.0); Immature Granulocyte Absolute 0.02 K/mm3 (0.00-0.031); Immature Granulocyte Percent A 0.3 % (0-0.5); Lymphocytes Absolute Auto 1.16 K/mm3 (0.9-3.2); Lymphocytes Percent Auto 18.3 % (18.3-44.2); Mean Corpuscular HGB Conc 31.8 g/dl (32-36); Mean Corpuscular Hemoglobin 30.3 pg (26-34); Mean Corpuscular Volume 95.3 fl (80-100); Mean Platelet Volume 10.5 fl (7.4-10.4); Monocytes Absolute Auto 0.6 K/mm3 (0.1-0.6); Monocytes Percent Auto 8.8 % (2.6-8.5); Neutrophils Absolute Auto 4.3 K/mm3 (1.3-6.7); Neutrophils Percent Auto 68.3 % (45.5-73.1); Platelet Count Result 345 k/mm3 (150-375); Red Cell Distribution Width 13.4 % (11.5-14.5); White Blood Count 6.3 K/mm3 (4.5-10.0)
[2019-05-30 05:14] LABS: Blood Urea Nitrogen 13 mg/dL (7-17); Calcium 8.3 mg/dL (8.4-10.2); Carbon Dioxide 27 mmol/L (22-30); Chloride 105 mmol/L (98-107); Estimated Glomerular Filt Rate > 60; Glucose 97 mg/dL (65-105); Potassium 3.8 mmol/L (3.4-5.0); Sodium 137 mmol/L (137-145)
[2019-05-30] MEDS: LEVOTHYROXINE SODIUM 112 MCG, LEVOTHYROXINE SODIUM 25 MCG 137 MCG PO (05:34)
[2019-05-30 05:50] VITALS: BP 151/42; PULSE 63; RESP 20; TEMP 36.6; O2SAT 96
[2019-05-30 07:01] LABS: Glucose Point of Care 87 (65-105)
[2019-05-30] MEDS: AMLODIPINE BESYLATE 5 MG TABLET 10 MG PO (07:56)
[2019-05-30] MEDS: FERROUS SULFATE 324 MG TABLET PO (07:57)
[2019-05-30] MEDS: GABAPENTIN 300 MG CAPSULE 600 MG PO ×3 (07:57→17:47)
[2019-05-30] MEDS: ENOXAPARIN 40 MG/0.4 ML SYRINGE SUB-Q (07:57)
[2019-05-30] MEDS: PANTOPRAZOLE 40 MG TABLET PO (07:57)
[2019-05-30] MEDS: MULTIVITAMINS THERAPEUTIC TAB (*BKC) 1 TABLET PO (07:57)
[2019-05-30] MEDS: ASCORBIC ACID 250 MG TABLET PO (07:57)
--- NOTE | 2019-05-30 11:48 | WPDNEURORHBP ---
Subjective Date/time seen: 05/30/19 11:48 Interval history: patient is here with right hip fracture and other comorbidities mentioned in the initial history and physical examination She is progressing fairly well she was present for the team conference along with the She denies any headache nausea vomiting chest pain shortness of breath She also denies any fever chills or sore throat Review of Systems Constitutional: Constitutional: Reports no additional constitutional complaints Eyes: Eyes: Reports no additional eye complaints ENT: Reports system reviewed and no additional complaints, except as documented Cardiovascular: Cardiovascular: Reports no additional cardiovascular complaints Respiratory: Respiratory: Reports no additional respiratory complaints Gastrointestinal: Gastrointestinal: Reports no additional gastrointestinal complaints Genitourinary: Genitourinary: Reports no additional female genitourinary complaints Musculoskeletal: Musculoskeletal: Reports no additional musculoskeletal complaints Integumentary/Breasts: Skin/Breast: Reports system reviewed and no additional complaints, except as docu Neurologic: Comments: patient's mental status is fairly decent and normal likewise train examination is normal the weakness wishes had had after the surgery is also improving she is using a wheeled walker which she has at home and continues to do fairly well Psychiatric: Psychiatric: Reports no additional psychiatric complaints Functional Status Ambulation Ability Ability to Ambulate 10 Feet: Independent Ability to Ambulate 50 Feet With 2 Turns: Independent Ability to Ambulate 150 Feet: Independent Ambulation Assistive Devices: Walker, Wheeled Transfers Ability Ability to Transfer In/Out of Chair: Independent Exam Const: General: comfortable and no acute distress HENMT: General nose exam: Normal nares present Mouth: Yes moist mucous membranes Eyes: General: appearance normal, both eyes and all related structures Neck: Neck: supple and no JVD Resp: Effort & Inspection: normal respiratory effort Auscultation: clear to auscultation bilaterally Cardio: Rate: regular rate Rhythm: regular rhythm GI: GI Palp: Yes Soft to palpation Auscultation: normal bowel sounds Skin: General skin exam: normal color and no rashes or lesions noted Neuro: Other: patient's mental status is normal range of the motion normal the strength is improving and she is able to perform the activities of daily living much better than before Extrem: General: normal to inspection Objective Data Vital Signs Vital Signs: Vital Signs - 24 hr 05/29/19 14:31 05/29/19 21:36 05/30/19 05:50 Temperature 36.7 C 36.6 C 36.6 C Pulse Rate 70 59 L 63 Respiratory Rate 20 20 20 Blood Pressure 144/40 H 165/36 H 151/42 H Pulse Oximetry 99 98 96 Intake/Output Intake/Output: Intake & Output 05/27/19 05/28/19 05/29/19 05/30/19 23:59 23:59 23:59 23:59 Intake Total 720 720 720 360 Balance 720 720 720 360 Meds/Results Medications: Active Medications Generic Name Dose Route Start Last Admin Trade Name Hanh PRN Reason Stop Dose Admin Amlodipine Besylate 10 mg 05/23/19 09:00 05/30/19 07:56 Norvasc PO 10 mg DAILY HEATHER Administration Ascorbic Acid 250 mg 05/23/19 09:00 05/30/19 07:57 Vitamin C PO 250 mg DAILY HEATHER Administration Atorvastatin Calcium 40 mg 05/22/19 21:00 05/29/19 20:55 Lipitor PO 40 mg HS HEATHER Administration Enoxaparin Sodium 40 mg 05/23/19 09:00 05/30/19 07:57 Lovenox SUB-Q 06/26/19 09:01 40 mg DAILY HEATHER Administration Ferrous Sulfate 324 mg 05/23/19 09:00 05/30/19 07:57 Ferrous Sulfate PO 324 mg DAILY HEATHER Administration Gabapentin 600 mg 05/22/19 21:00 05/30/19 07:57 Neurontin PO 600 mg TID HEATHER Administration Levothyroxine Sodium 112 mcg/ 137 mcg 05/23/19 06:30 05/30/19 05:34 Levothyroxine Sodium 25 mcg PO 137 mcg DAILY@0630 [place]
[2019-05-30 15:40] VITALS: BP 139/36; PULSE 67; RESP 18; TEMP 36.3; O2SAT 98
[2019-05-30] MEDS: ATORVASTATIN 40 MG TABLET PO (19:54)
[2019-05-30 22:00] VITALS: BP 157/56; PULSE 68; RESP 18; TEMP 36.8; O2SAT 97
[2019-05-31 05:29] VITALS: BP 166/58; PULSE 79; RESP 18; TEMP 36.5; O2SAT 96
[2019-05-31] MEDS: LEVOTHYROXINE SODIUM 112 MCG, LEVOTHYROXINE SODIUM 25 MCG 137 MCG PO (05:34)
[2019-05-31 06:40] LABS: Glucose Point of Care 89 (65-105)
[2019-05-31] MEDS: ENOXAPARIN 40 MG/0.4 ML SYRINGE SUB-Q (10:14)
[2019-05-31] MEDS: FERROUS SULFATE 324 MG TABLET PO (10:15)
[2019-05-31] MEDS: PANTOPRAZOLE 40 MG TABLET PO (10:15)
[2019-05-31] MEDS: AMLODIPINE BESYLATE 5 MG TABLET 10 MG PO (10:15)
[2019-05-31] MEDS: ASCORBIC ACID 250 MG TABLET PO (10:15)
[2019-05-31] MEDS: GABAPENTIN 300 MG CAPSULE 600 MG PO ×3 (10:15→17:22)
[2019-05-31] MEDS: MULTIVITAMINS THERAPEUTIC TAB (*BKC) 1 TABLET PO (10:15)
[2019-05-31 11:48] LABS: Glucose Point of Care 113 (65-105)
--- NOTE | 2019-05-31 12:20 | WPDNEURORHBP ---
Subjective Date/time seen: 05/31/19 12:20 Interval history: patient is doing fairly well and has achieved the goals of over rehab she was going to be discharged tomorrow with home health to follow and the follow-up appointments with the primary care physician and the surgeons Review of Systems Constitutional: Constitutional: Reports no additional constitutional complaints Eyes: Eyes: Reports no additional eye complaints ENT: Reports system reviewed and no additional complaints, except as documented Cardiovascular: Cardiovascular: Reports no additional cardiovascular complaints Respiratory: Respiratory: Reports no additional respiratory complaints Gastrointestinal: Gastrointestinal: Reports no additional gastrointestinal complaints Genitourinary: Genitourinary: Reports no additional female genitourinary complaints Musculoskeletal: Musculoskeletal: Reports no additional musculoskeletal complaints Integumentary/Breasts: Skin/Breast: Reports system reviewed and no additional complaints, except as docu Neurologic: Reports system reviewed and no additional complaints, except as documented Psychiatric: Psychiatric: Reports no additional psychiatric complaints Functional Status Ambulation Ability Ability to Ambulate 10 Feet: Independent Ability to Ambulate 50 Feet With 2 Turns: Independent Ability to Ambulate 150 Feet: Independent Ambulation Assistive Devices: Walker, Wheeled Transfers Ability Ability to Transfer In/Out of Chair: Independent Exam Const: General: comfortable and no acute distress HENMT: General nose exam: Normal nares present Eyes: General: appearance normal, both eyes and all related structures Neck: Neck: supple and no JVD Resp: Effort & Inspection: normal respiratory effort Auscultation: clear to auscultation bilaterally Cardio: Rate: regular rate Rhythm: regular rhythm GI: GI Palp: Yes Soft to palpation Auscultation: normal bowel sounds Skin: General skin exam: normal color and no rashes or lesions noted Neuro: Other: mental status examination is normal, cranial nerve examination is normal is strength has improved the gait is with assistance because of the fracture of the hip Extrem: General: normal to inspection Other: the incision from the surgery on the hip is clean and healthy Psych: Mental Status: mental status grossly normal Objective Data Vital Signs Vital Signs: Vital Signs - 24 hr 05/30/19 15:40 05/30/19 22:00 05/31/19 05:29 Temperature 36.3 C L 36.8 C 36.5 C Pulse Rate 67 68 79 Respiratory Rate 18 18 18 Blood Pressure 139/36 L 157/56 H 166/58 H Pulse Oximetry 98 97 96 Intake/Output Intake/Output: Intake & Output 05/28/19 05/29/19 05/30/19 05/31/19 23:59 23:59 23:59 23:59 Intake Total 720 720 840 240 Balance 720 720 840 240 Meds/Results Medications: Active Medications Generic Name Dose Route Start Last Admin Trade Name Hanh PRN Reason Stop Dose Admin Amlodipine Besylate 10 mg 05/23/19 09:00 05/31/19 10:15 Norvasc PO 10 mg DAILY HEATHER Administration Ascorbic Acid 250 mg 05/23/19 09:00 05/31/19 10:15 Vitamin C PO 250 mg DAILY HEATHER Administration Atorvastatin Calcium 40 mg 05/22/19 21:00 05/30/19 19:54 Lipitor PO 40 mg HS HEATHER Administration Enoxaparin Sodium 40 mg 05/23/19 09:00 05/31/19 10:14 Lovenox SUB-Q 06/26/19 09:01 40 mg DAILY HEATHER Administration Ferrous Sulfate 324 mg 05/23/19 09:00 05/31/19 10:15 Ferrous Sulfate PO 324 mg DAILY HEATHER Administration Gabapentin 600 mg 05/22/19 21:00 05/31/19 12:08 Neurontin PO 600 mg TID HEATHER Administration Levothyroxine Sodium 112 mcg/ 137 mcg 05/23/19 06:30 05/31/19 05:34 Levothyroxine Sodium 25 mcg PO 137 mcg DAILY@0630 HEATHER Administration Multivitamins Therapeutic 1 tablet 05/23/19 09:00 05/31/19 10:15 Multivitamins Therapeutic(*Bkc PO 1 tablet DAILY HEATHER Administration Oxybutynin Chloride 5 mg 05/23/19 09:00
[2019-05-31 14:00] VITALS: BP 166/40; PULSE 62; RESP 16; TEMP 36.4; O2SAT 98
[2019-05-31] MEDS: ATORVASTATIN 40 MG TABLET PO (19:45)
[2019-05-31 21:08] VITALS: BP 153/37; PULSE 69; RESP 20; TEMP 36.5; O2SAT 96
[2019-06-01 05:36] VITALS: BP 153/34; PULSE 66; RESP 20; TEMP 36.3; O2SAT 98
[2019-06-01] MEDS: LEVOTHYROXINE SODIUM 112 MCG, LEVOTHYROXINE SODIUM 25 MCG 137 MCG PO (05:52)
[2019-06-01 06:01] VITALS: BP 140/60
[2019-06-01 06:59] LABS: Glucose Point of Care 82 (65-105)
[2019-06-01] MEDS: AMLODIPINE BESYLATE 5 MG TABLET 10 MG PO (08:37)
[2019-06-01] MEDS: ASCORBIC ACID 250 MG TABLET PO (08:37)
[2019-06-01] MEDS: FERROUS SULFATE 324 MG TABLET PO (08:38)
[2019-06-01] MEDS: ENOXAPARIN 40 MG/0.4 ML SYRINGE SUB-Q (08:38)
[2019-06-01] MEDS: PANTOPRAZOLE 40 MG TABLET PO (08:38)
[2019-06-01] MEDS: MULTIVITAMINS THERAPEUTIC TAB (*BKC) 1 TABLET PO (08:38)
[2019-06-01] MEDS: GABAPENTIN 300 MG CAPSULE 600 MG PO (08:38)
--- NOTE | 2019-06-01 11:15 | PCDIET ---
Nutrition Follow-Up Complete: No nutrition diagnosis at this time. Nutrition Goals: Intakes >75%, stable weight. Goal met. Patient consuming 75-100% of most meals on diabetic, carbohydrate controlled diet, which is appropriate. Recommend new weight to ensure stable. Last recorded weight is 64.5 kg. Bowel Motility: +BM on 05/30/19. Labs Reviewed: Glu (82) Meds Noted: Vitamin C, Ferrous Sulfate, Levothyroxine, MVI, Protonix Additional Notes: Right hip surgical incision; no documented pressure sores. Will continue to monitor with same goals. Nutrition Monitoring and Evaluation: Follow up in 7 days.
--- NOTE | 2019-06-08 05:56 | DS_ITS ---
DATE OF DISCHARGE: 06/01/2019 Discharge primary rehab impairment category is orthopedic lower extremity fracture with etiological diagnosis of right intertrochanteric fracture. DISCHARGE ACTIVE COMORBID CONDITIONS: Type 2 diabetes mellitus with peripheral neuropathy, hypertension, hyperlipidemia. REASON FOR ADMISSION: A 78-year-old, right-handed female, with past medical history of. 1. Hypertension. 2. Hyperlipidemia. 3. Type 2 diabetes mellitus. Presented to [facility] on 05/18/2019, subsequent to a fall from standing. When she was shopping and other customer bumped into her knocking her to the ground. She immediately developed right hip pain. Investigation documented right intertrochanteric fracture. Orthopedics were consulted. She underwent intramedullary nailing on 05/18/2019 and was postop weightbearing as tolerated to the right lower extremity. Postop complication included acute kidney injury, suspect superimposed on chronic kidney disease, acute blood loss anemia, and hypertension. The most recent hemoglobin of 8.9. Pain was controlled on the oral pain medication. She was discharged to rehab on Lovenox and anticoagulation plan for 35 days. LEVEL OF FUNCTION AT THE TIME OF ADMISSION: The patient was independent in eating, required supervision for oral hygiene, partial assistance for toileting, substantial assistance for bathing, supervision for upper body dressing, substantial for lower body dressing. She was dependent for footwear. She required partial assistance for rolling in bed, sit to lying, lying to sitting, sit to stand, chair transfer, toilet transfer, car transfer, walking 10 feet, picking up object, wheelchair for 50 and 150 feet, but she was unable to walk 50 feet with 2 turns, walk 150 feet, 10 feet on uneven surfaces, 4 steps and 12 steps. She required partial assistance for curb or step. Anticipated rehab goals at the time of admission were to make her independent in all the modalities except to require setup for the curb or step, 4 steps and still remain dependent for the 12 steps. LEVEL OF FUNCTION AT THE TIME OF DISCHARGE: The patient became independent in all the modalities except that she required the setup for 4 steps, 12 steps, wheelchair, for 50 or 150 feet. HOSPITAL COURSE: During the hospitalization, she was involved in the physical therapy and occupational therapy on a regular basis and at the time of discharge, her exam revealed her to be stable with normal general physical examination and stable neurological examination. DISCHARGE MEDICATIONS: 1. Gabapentin 600 mg 3 times a day. 2. Levothyroxine 137 mcg daily. 3. Amlodipine 10 mg daily. 4. Ascorbic acid 250 daily. 5. Atorvastatin 40 mg at night. 6. Lovenox 40 subcu daily. 7. Ferrous sulfate 325 mg daily. 8. Multivitamin 1 tab daily. 9. Omeprazole 20 mg daily. 10. Oxybutynin chloride 5 mg daily. 11. Oxycodone 5 mg q.6 hours p.r.n. DISCHARGE DESTINATION: Home with home health. FALL AND INJURY DURING THE HOSPITALIZATION: None. D I MT: [place]
== END 2019-06-01 11:45 | disposition home health service (06) | DRG 561 ==
PROVIDERS: Admitting Provider Psychiatry & Neurology Neurology; Visit Provider Psychiatry & Neurology Neurology
DX: S72.141D Displaced intertrochanteric fracture of right femur, subsequent encounter for closed fracture with routine healing (principal); S70.211D Abrasion, right hip, subsequent encounter; D64.9 Anemia, unspecified; E78.5 Hyperlipidemia, unspecified; E11.42 Type 2 diabetes mellitus with diabetic polyneuropathy; I10 Essential (primary) hypertension; M17.11 Unilateral primary osteoarthritis, right knee; W19.XXXD Unspecified fall, subsequent encounter; Z79.01 Long term (current) use of anticoagulants
CPT/HCPCS: 36415; 80048; 85025; 87081; 97110; 97116; 97150; 97162; 97166; 97530; 97535; 97542; A9270; J1650